=== PATIENT | female | born 1975 | race Caucasian/White ===

== ENCOUNTER 2018-09-14 12:04 | Emergency (ER) | payer OTHER ==
[~2018-09-14] VITALS: Ht 170.2 cm; Wt 56.2 kg
[~2018-09-14 12:04] MED LIST: BENADRYL25 MG PO; ERYTHROMYCIN500 M1 ORAL; IBUPROFEN600 MG PO; NKM; ZANTAC150 MG PO
[2018-09-14] MEDS ORDERED: VENTOLIN HFA18 GM INH (12:15)
[2018-09-14 12:30] VITALS: BP 123/71
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
[2018-09-14] MEDS ORDERED: LIDODERM700 M1 TOPIC (13:05)
[2018-09-14] MEDS ORDERED: IBUPROFEN600 MG ORAL (13:05)
[2018-09-14] MEDS ORDERED: SOMA250 MG PO (13:05)
[2018-09-14] MEDS ORDERED: ROBAXIN-750750 MG PO (13:05)
[2018-09-14 13:21] VITALS: BP 121/70
== END 2018-09-14 13:21 | disposition home or self-care (01) ==
LOC: EMR 13:08
DX: S16.1XXA Strain of muscle, fascia and tendon at neck level, initial encounter (principal); V43.52XA Car driver injured in collision with other type car in traffic accident, initial encounter; Y92.410 Unspecified street and highway as the place of occurrence of the external cause; J45.909 Unspecified asthma, uncomplicated; Z91.040 Latex allergy status; Z91.018 Allergy to other foods
CPT/HCPCS: 99282